=== PATIENT | female | born 1985 | race Caucasian/White ===

== ENCOUNTER 2023-03-31 10:27 | Emergency (ER) | payer BC, OTHER ==
[2023-03-31 10:35] VITALS: BP 133/89; PULSE 97; RESP 16; TEMP 98.5; BMI 27.4
[2023-03-31] MEDS ORDERED: KETOROLAC TROMETHAMINE 30 MG/1 ML VIAL IM ONE (10:47)
[2023-03-31] MEDS ORDERED: LIDOCAINE 5% TOPICAL PATCH TP ONE (10:48)
[2023-03-31] MEDS ORDERED: KETOROLAC TROMETHAMINE 30 MG/1 ML VIAL ONE (10:51)
[2023-03-31] MEDS ORDERED: LIDOCAINE 5% TOPICAL PATCH ONE (10:51)
== END 2023-03-31 12:09 | disposition home or self-care (01) ==
LOC: FER 10:27 → SUPCPDRO 10:27 → FER 12:09
PROC: 3E0233Z Introduction of Anti-inflammatory into Muscle, Percutaneous Approach (ICD-10-PCS; principal; 2023-03-31)
DX: S46.812A Strain of other muscles, fascia and tendons at shoulder and upper arm level, left arm, initial encounter (principal); M54.2 Cervicalgia; M54.6 Pain in thoracic spine; X50.9XXA Other and unspecified overexertion or strenuous movements or postures, initial encounter
CPT/HCPCS: 71046-TC-FY; 81025; 99284-25